=== PATIENT | male | born 2000 | race Caucasian/White ===

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

== ENCOUNTER 2020-04-07 16:41 | Outpatient (REF) | payer OTHER, SELFPAY ==
[2020-04-11 10:08] LABS: COVID-19 RT-PCR Result NEGATIVE (Negative)
== END 2020-04-07 17:01 ==
LOC: NCHCN 16:41
PROVIDERS: PCP Nurse Practitioner Family; Visit Provider Family Medicine
DX: Z11.59 Encounter for screening for other viral diseases (principal)
CPT/HCPCS: U0003